=== PATIENT | male | born 1965 | race Caucasian/White ===

== ENCOUNTER → 2016-06-16 | Outpatient (CLI) | payer OTHER ==
[~2016-06-16] MED LIST: LEVO500T33 PO; OXYC-302 PO
== END | disposition home or self-care (01) ==
LOC: CFH 15:45
PROVIDERS: ATTEND Neurological Surgery
DX: M43.16 Spondylolisthesis, lumbar region (principal); M51.36 Other intervertebral disc degeneration, lumbar region; M53.2X6 Spinal instabilities, lumbar region; M41.86 Other forms of scoliosis, lumbar region
CPT/HCPCS: 72110

== ENCOUNTER → 2016-07-04 | Outpatient (CLI) | payer OTHER ==
[~2016-07-04] MED LIST changes: +DIAZ5TAB PO; +GABAPENTIN PO; +OXYC-229 PO
[2016-07-04 10:05] LABS: HEMOGLOBIN 14.1 g/dL (13.7-18.0)
[2016-07-04 10:16] LABS: BLOOD UREA NITROGEN 16 mg/dL (7-18)
== END | disposition home or self-care (01) ==
LOC: STAR 09:00
PROVIDERS: ATTEND Neurological Surgery
DX: Z01.818 Encounter for other preprocedural examination (principal); M43.10 Spondylolisthesis, site unspecified; R79.1 Abnormal coagulation profile
CPT/HCPCS: 36415; 71020; 80048; 81003; 85025; 85610; 85730; 93005

== ENCOUNTER 2016-07-10 06:45 | Inpatient (IN) | payer OTHER ==
[~2016-07-10] VITALS: Ht 182.9 cm; Wt 68.0 kg
[2016-07-10 07:25] VITALS: BP 125/57
[2016-07-10] MEDS ORDERED: LACTATED RINGERS 1,000 ML IV SCH (07:31)
[2016-07-10] MEDS ORDERED: GABA300C10 PO (07:31)
[2016-07-10] MEDS ORDERED: PNEUMOCOCCAL VACC.PER PHARMACY IM ONE (08:00)
[2016-07-10] MEDS ORDERED: MIDAZOLAM 1 MG/ML, 2ML ONE (09:48)
[2016-07-10] MEDS ORDERED: FENTANYL PF 250 MCG/5ML ONE ×2 (09:48→12:43)
[2016-07-10] MEDS ORDERED: THROMBIN 5,000 UNIT VIAL TP ONE (10:39)
[2016-07-10] MEDS ORDERED: BUPIVACAINE/PF-EPI 0.25% 1:200K ONE (10:39)
[2016-07-10] MEDS ORDERED: BACITRACIN 50,000 UNIT ONE (10:40)
[2016-07-10] MEDS ORDERED: ACETAMINOPHEN 325 MG TABLET PO PRN (11:00)
[2016-07-10] MEDS ORDERED: hydrALAzine 20 MG/ML, 1ML IV PRN (11:00)
[2016-07-10] MEDS ORDERED: METOPROLOL 1 MG/ML, 5ML IV PRN (11:00)
[2016-07-10] MEDS ORDERED: MEPERIDINE/PF 25MG/0.5ML IVPush PRN (11:00)
[2016-07-10] MEDS ORDERED: MIDAZOLAM 1 MG/ML, 2ML IV PRN (11:00)
[2016-07-10] MEDS ORDERED: OXYcodone 5 MG/5 ML ORAL.SOL UDC PO PRN (11:00)
[2016-07-10] MEDS ORDERED: PROMETHAZINE 25 MG/ML, 1ML IV PRN (11:00)
[2016-07-10] MEDS ORDERED: ALBUTEROL SULFATE 2.5 MG/3 ML NPPB PRN (11:00)
[2016-07-10] MEDS ORDERED: ROCURONIUM 10 MG/ML ONE (11:04)
[2016-07-10] MEDS ORDERED: PROPOFOL 10 MG/ML, 20ML ONE (11:04)
[2016-07-10] MEDS ORDERED: PROPOFOL 10 MG/ML, 50ML ONE (11:04)
[2016-07-10] MEDS ORDERED: ONDANSETRON 2MG/ML, 2ML ONE (11:04)
[2016-07-10] MEDS ORDERED: DEXAMETHASONE 4 MG/ML, 1ML ONE (11:04)
[2016-07-10] MEDS ORDERED: CEFAZOLIN 1,000 MG ONE (11:04)
[2016-07-10] MEDS ORDERED: OXYcodone 5 MG/5 ML ORAL.SOL UDC ONE (13:34)
[2016-07-10] MEDS ORDERED: FENTANYL PF 100 MCG/2ML ONE (13:34)
[2016-07-10] MEDS: FENTANYL PF 100 MCG/2ML IV PRN ×2 (13:36→13:53)
[2016-07-10] MEDS ORDERED: HYDROmorphone PCA 30 MG/30 ML ONE (13:53)
[2016-07-10] MEDS ORDERED: HYDROmorphone PCA 30 MG/30 ML IV PRN (14:00)
[2016-07-10] MEDS ORDERED: DIAZEPAM 5 MG/ML, 2ML ONE (14:06)
[2016-07-10] MEDS ORDERED: HYDROmorphone 2 MG/ML, 1ML ONE (14:06)
[2016-07-10] MEDS: HYDROmorphone 1 MG/ML, 1ML IV PRN ×2 (14:08→14:28)
[2016-07-10] MEDS ORDERED: DIAZEPAM 5 MG/ML, 2ML IVPush PRN (14:30)
[2016-07-10] MEDS ORDERED: ONDANSETRON 2MG/ML, 2ML IV PRN (16:00)
[2016-07-10] MEDS ORDERED: morphine SULFATE 10 MG/ML, 1ML IV PRN (16:00)
[2016-07-10] MEDS ORDERED: BISACODYL 10 MG SUPP PR PRN (16:00)
[2016-07-10] MEDS ORDERED: DIPHENHYDRAMINE 25 MG CAPSULE PO PRN (16:00)
[2016-07-10] MEDS ORDERED: HYDROcodone/APAP 5/325 TABLET PO PRN (16:00)
[2016-07-10] MEDS ORDERED: MAGNESIUM HYDROXIDE 8%, 30ML UDC PO PRN (16:00)
[2016-07-10] MEDS ORDERED: DIPHENHYDRAMINE 50 MG/ML, 1ML IVPush PRN (16:00)
[2016-07-10] MEDS: MEPERIDINE/PF 100 MG/ML IM PRN ×2 (16:19→23:05)
[2016-07-10] MEDS: OXYcodone/APAP 10/325MG TABLET PO PRN ×2 (17:51→22:32)
[2016-07-10] MEDS ORDERED: PNEUMOCOCCAL 23 VACCINE IM-VACC ONE (18:00)
[2016-07-10 20:00] VITALS: BP 102/62
[2016-07-10] MEDS: CEFAZOLIN PMX 1GM/50ML 50 ML IVPB SCH (22:32)
[2016-07-10] MEDS: DIAZEPAM 5 MG TABLET PO SCH (22:32)
[2016-07-11] VITALS: BP 111/62
[2016-07-11] MEDS: OXYcodone/APAP 10/325MG TABLET PO PRN ×6 (01:59→22:58)
[2016-07-11] MEDS: TIZANIDINE 4MG TABLET PO PRN ×2 (02:05→12:33)
[2016-07-11] MEDS: MEPERIDINE/PF 100 MG/ML IM PRN ×4 (04:12→19:30)
[2016-07-11 04:30] VITALS: BP 105/68
[2016-07-11 06:17] LABS: HEMOGLOBIN 12.9 g/dL (13.7-18.0)
[2016-07-11 06:27] LABS: BLOOD UREA NITROGEN 16 mg/dL (7-18)
[2016-07-11] MEDS: CEFAZOLIN PMX 1GM/50ML 50 ML IVPB SCH (06:31)
[2016-07-11 07:40] VITALS: BP 104/63
[2016-07-11] MEDS: SENNA/DOCUSATE TABLET PO SCH (08:47)
[2016-07-11] MEDS: DIAZEPAM 5 MG TABLET PO SCH ×2 (08:47→20:53)
[2016-07-11] MEDS: GABAPENTIN 300 MG CAPSULE PO SCH (08:47)
[2016-07-11 13:19] VITALS: BP 136/76
[2016-07-11 20:30] VITALS: BP 115/71
[2016-07-12] MEDS: MEPERIDINE/PF 100 MG/ML IM PRN ×2 (00:54→05:05)
[2016-07-12 02:45] VITALS: BP 111/70
[2016-07-12] MEDS: OXYcodone/APAP 10/325MG TABLET PO PRN ×2 (02:58→06:49)
[2016-07-12 06:23] LABS: BLOOD UREA NITROGEN 12 mg/dL (7-18)
[2016-07-12 06:30] LABS: HEMOGLOBIN 12.1 g/dL (13.7-18.0)
[2016-07-12 08:18] VITALS: BP 118/62
[2016-07-12] MEDS ORDERED: DIAZ5TAB PO (08:57)
[2016-07-12] MEDS ORDERED: TIZA4TAB PO (08:57)
[2016-07-12] MEDS: DIAZEPAM 5 MG TABLET PO SCH (09:00)
[2016-07-12] MEDS: SENNA/DOCUSATE TABLET PO SCH (09:00)
[2016-07-12] MEDS: GABAPENTIN 300 MG CAPSULE PO SCH (09:03)
[2016-07-12] MEDS: TIZANIDINE 4MG TABLET PO PRN (09:03)
[2016-07-12] MEDS ORDERED: DOCU100C PO (09:49)
== END 2016-07-12 10:09 | disposition home or self-care (01) | DRG 460 ==
LOC: ORIP 06:45 → 4NOR 15:12 → DCLOUNGE 07-12 09:26
PROVIDERS: ADMIT Neurological Surgery; ATTEND Neurological Surgery
PROC: 0SG00AJ Fusion of Lumbar Vertebral Joint with Interbody Fusion Device, Posterior Approach, Anterior Column, Open Approach (ICD-10-PCS; principal; 2016-07-10 11:00)
DX: M43.16 Spondylolisthesis, lumbar region (principal); M51.16 Intervertebral disc disorders with radiculopathy, lumbar region; M48.06 Spinal stenosis, lumbar region; Z91.013 Allergy to seafood; F17.210 Nicotine dependence, cigarettes, uncomplicated; Z83.3 Family history of diabetes mellitus
CPT/HCPCS: 36415; 72110; 80048; 85025; 90732; 95938; 95941; C1713; C1776; J0690; J1100; J1170; J2250; J2405; J2704; J3010; J3360; J2175; J7120

== ENCOUNTER 2018-05-27 03:48 | Emergency (ER) | payer OTHER ==
[~2018-05-27] VITALS: Ht 182.9 cm; Wt 69.2 kg
[~2018-05-27 03:48] MED LIST changes: +CALC200T3 PO; +DOCU-180 PO; +GABA300C10 PO; -LEVO500T33 PO; +LEVO500T47 PO; +NAPR220C2 PO; -OXYC-229 PO; +OXYC-307 PO; +TIZA4TAB PO
[2018-05-27] MEDS ORDERED: KETOROLAC 30 MG/1 ML ONE (04:09)
[2018-05-27] MEDS ORDERED: OXYC-307 PO (04:11)
--- NOTE | 2018-05-27 04:13 | NUR ---
PT PRESENTED WITH C/O COUGH FOR 4 DAYS WITH BODY ACHES. MONITORS APPLIED, SIDERAILS UP 2, CALL LIGHT WITHIN REACH. PT MEDICATED PER MAY, AWAITING LAB AND XRAY RESULTS
[2018-05-27 04:18] LABS: BASOPHILS # (AUTO) 0.04 x10^3/uL (0-0.1); BASOPHILS % (AUTO) 1 % (0-1); EOSINOPHILS # (AUTO) 0.11 x10^3/uL (0-0.4); EOSINOPHILS % (AUTO) 2 % (1-7); LYMPHOCYTES # (AUTO) 1.17 x10^3/uL (1-3.4); LYMPHOCYTES % (AUTO) 24 % (22-44); MD NO; MEAN CORPUSCULAR HEMOGLOBIN 30.7 pg (27.5-34.5); MEAN CORPUSCULAR HGB CONC 33.8 g/dL (33.2-36.2); MEAN CORPUSCULAR VOLUME 90.9 fL (81-97); MEAN PLATELET VOLUME 8.6 fL (7.4-10.4); MONOCYTES # (AUTO) 0.44 x10^3/uL (0.2-0.8); MONOCYTES % (AUTO) 9 % (2-9); NEUTROPHILS # (AUTO) 3.13 x10^3/uL (1.8-6.8); NEUTROPHILS % (AUTO) 64 % (42-75); PLATELET COUNT 236 x10^3/uL (130-400); RED BLOOD COUNT 4.46 x10^6/uL (4.38-5.82); RED CELL DISTRIBUTION WIDTH 14.6 % (9.4-14.8)
[2018-05-27 04:20] VITALS: BP 111/76
[2018-05-27 04:26] LABS: RAPID INFLUENZA A Negative (Negative); RAPID INFLUENZA B Negative (Negative)
[2018-05-27 04:29] LABS: ALBUMIN 3.9 g/dL (3.4-5.0); ANION GAP 7 mmol/L (5-15); CALCIUM 8.5 mg/dL (8.5-10.1); CHLORIDE 112 mmol/L (98-107); CREATININE 0.97 mg/dL (0.7-1.3)
[2018-05-27] MEDS ORDERED: KETOROLAC 30 MG/1 ML IM ONE (04:30)
[2018-05-27 04:33] LABS: TROPONIN I < 0.015 ng/mL (0.000-0.045)
== END 2018-05-27 05:05 | disposition home or self-care (01) ==
LOC: ED 04:55
DX: J20.9 Acute bronchitis, unspecified (principal); R07.89 Other chest pain; B34.9 Viral infection, unspecified; F17.200 Nicotine dependence, unspecified, uncomplicated; Z91.013 Allergy to seafood
CPT/HCPCS: 36415; 71046; 80048; 82040; 83880; 84484; 85025; 87400; 93005; 96372; 99284; 99406; J1885

== ENCOUNTER 2018-11-08 16:32 | Emergency (ER) | payer OTHER ==
[~2018-11-08] VITALS: Ht 182.9 cm; Wt 70.5 kg
[2018-11-08 16:56] VITALS: BP 125/70
== END 2018-11-09 04:09 | disposition home or self-care (01) ==
LOC: ED 17:02
DX: F32.9 Major depressive disorder, single episode, unspecified (principal); S61.512A Laceration without foreign body of left wrist, initial encounter; F17.200 Nicotine dependence, unspecified, uncomplicated; X78.1XXA Intentional self-harm by knife, initial encounter; Y93.89 Activity, other specified; Y92.89 Other specified places as the place of occurrence of the external cause; Y99.8 Other external cause status
CPT/HCPCS: 36415; 80053; 80307; 85025; 99284

== ENCOUNTER 2019-10-15 21:45 | Emergency (ER) | payer OTHER ==
[~2019-10-15] VITALS: Ht 182.9 cm; Wt 65.6 kg
[~2019-10-15 21:45] MED LIST changes: -TIZA4TAB PO; +TIZA4TAB2 PO
--- NOTE | 2019-10-15 21:57 | NUR ---
EKG DONE IN TRIAGE.
--- NOTE | 2019-10-15 22:12 | NUR ---
PT REPORTS SOB AND VOMITING SINCE YESTERDAY, FELT WORSE TODAY AT WORK. PLACED ON ALL VITALS AND CARDIAC MONITORS.
[2019-10-15] MEDS ORDERED: SODIUM CHLORIDE 0.9% 1,000ML IVBOLUS ONE (22:30)
[2019-10-15] MEDS ORDERED: ONDANSETRON 2MG/ML, 2ML IVPush ONE (22:30)
[2019-10-15] MEDS ORDERED: SODIUM CHLORIDE FLUSH 10ML SYR IVF ONE (22:30)
--- NOTE | 2019-10-15 22:30 | NUR ---
SWABBED FOR COVID.
[2019-10-15 22:41] LABS: BASOPHILS # (AUTO) 0.09 x10^3/uL (0-0.1); BASOPHILS % (AUTO) 1 % (0-1); EOSINOPHILS # (AUTO) 0.06 x10^3/uL (0-0.4); EOSINOPHILS % (AUTO) 1 % (1-7); LYMPHOCYTES # (AUTO) 1.89 x10^3/uL (1-3.4); LYMPHOCYTES % (AUTO) 18 % (22-44); MD NO; MEAN CORPUSCULAR HEMOGLOBIN 31.1 pg (27.5-34.5); MEAN CORPUSCULAR HGB CONC 33.7 g/dL (33.2-36.2); MEAN PLATELET VOLUME 8.5 fL (7.4-10.4); MONOCYTES % (AUTO) 5 % (2-9); NEUTROPHILS # (AUTO) 7.75 x10^3/uL (1.8-6.8); NEUTROPHILS % (AUTO) 75 % (42-75); PLATELET COUNT 286 x10^3/uL (130-400); RED BLOOD COUNT 5.11 x10^6/uL (4.38-5.82); RED CELL DISTRIBUTION WIDTH 13.5 % (9.4-14.8)
[2019-10-15] MEDS ORDERED: ONDANSETRON 2MG/ML, 2ML ONE (22:49)
[2019-10-15 22:50] LABS: ALANINE AMINOTRANSFERASE 25 U/L (12-78); ALBUMIN 3.8 g/dL (3.4-5.0); ANION GAP 7 mmol/L (5-15); CALCIUM 9.2 mg/dL (8.5-10.1); CHLORIDE 109 mmol/L (98-107); CREATININE 1.57 mg/dL (0.7-1.3)
[2019-10-15 22:54] LABS: ALKALINE PHOSPHATASE 84 U/L (45-117); BILIRUBIN,TOTAL 0.7 mg/dL (0.2-1.0); TOTAL PROTEIN 7.9 g/dL (6.4-8.2); TROPONIN I < 0.015 ng/mL (0.000-0.045)
[2019-10-15 23:14] VITALS: BP 123/80
== END 2019-10-16 00:40 | disposition home or self-care (01) ==
LOC: ED 22:45
DX: R06.00 Dyspnea, unspecified (principal); Z20.828 Contact with and (suspected) exposure to other viral communicable diseases; J06.9 Acute upper respiratory infection, unspecified; R07.89 Other chest pain; N28.9 Disorder of kidney and ureter, unspecified; R11.2 Nausea with vomiting, unspecified; R00.0 Tachycardia, unspecified
CPT/HCPCS: 36415; 71045; 80053; 84484; 85025; 85379; 87635; 93005; 96361; 96374; 99285; J2405; J7030

== ENCOUNTER → 2020-09-13 | Outpatient (CLI) | payer OTHER ==
[~2020-09-13] MED LIST changes: -DOCU-180 PO; +DOCU-192 PO; -OXYC-302 PO; -OXYC-307 PO; +OXYC-380 PO; +OXYC1TAB14 PO
== END | disposition home or self-care (01) ==
LOC: CFH 07:58
PROVIDERS: ATTEND Physical Medicine & Rehabilitation
DX: M51.17 Intervertebral disc disorders with radiculopathy, lumbosacral region (principal); M48.061 Spinal stenosis, lumbar region without neurogenic claudication
CPT/HCPCS: 72148

== ENCOUNTER → 2020-11-03 | Outpatient (CLI) | payer OTHER | END | disposition home or self-care (01) | LOC: RAD 13:23 | PROVIDERS: ATTEND Nurse Practitioner Family | DX: M48.07 Spinal stenosis, lumbosacral region (principal); M51.36 Other intervertebral disc degeneration, lumbar region; M25.552 Pain in left hip | CPT/HCPCS: 72110 ==

== ENCOUNTER 2020-12-11 09:01 | Emergency (ER) | payer OTHER ==
[~2020-12-11] VITALS: Ht 182.9 cm; Wt 60.4 kg
[~2020-12-11 09:01] MED LIST changes: -OXYC-380 PO; +OXYC-501 PO; +OXYC1TAB12 PO; -OXYC1TAB14 PO
--- NOTE | 2020-12-11 13:03 | NUR ---
THIS PT PULLED BACK FROM LOBBY INTO TRIAGE TO DC PER ED PA ORDER. PT VERBALIZED UNDERSTANDING TO DC INSTRUCTIONS. PROVIDED WORK NOTE. AMBULATORY TO CHECKOUT C STEADY GAIT. VSS
[2020-12-11 13:04] VITALS: BP 124/65
== END 2020-12-11 13:07 | disposition home or self-care (01) ==
LOC: ED 13:00
DX: J06.9 Acute upper respiratory infection, unspecified (principal); Z20.822 Contact with and (suspected) exposure to COVID-19; R06.02 Shortness of breath
CPT/HCPCS: 71045; 99284; U0003; U0005